=== PATIENT | female | born 1995 | race Caucasian/White ===

== ENCOUNTER 2022-06-22 19:30 | Inpatient (IN) | payer OTHER, SELFPAY ==
[~2022-06-22 19:30] MED LIST: Bupivacaine/Epinephrine 0.25% 30 ML VIAL ONE
[2022-06-23 01:37] LABS: Hemoglobin 10.8 g/dL (12.0-15.5); Mean Corpuscular HGB CONC 33.3 g/dL (32.0-36.0); Mean Corpuscular Hemoglobin 26.3 pg (27.0-33.0); Mean Corpuscular Volume 78.8 fl (81.6-98.3); Mean Platelet Volume 11.4 fl (7.4-10.4); Platelet Count 260 10x3/uL (150-450); RBC Distribution Width 13.7 % (11.5-14.5); Red Blood Cell (RBC) Count 4.11 10x6/uL (3.90-5.03); White Blood Cell (WBC) Count 12.5 10x3/uL (3.5-10.5)
[2022-06-23 02:10] LABS: HBSAg Index 0.16 S/CO (0-0.99); Hep B Surf Ag Non-Reactive S/CO (NonReactive)
[2022-06-23 02:11] LABS: Syphilis Antibody Nonreactive (Nonreactive); Syphilis Antibody Index 0.04 S/CO (<1.00 Non-Reactive)
[2022-06-23] MEDS ORDERED: Lidocaine 1% (PF) 30 ML VIAL SC PRN (02:15)
[2022-06-23] MEDS ORDERED: Lactated Ringer's 1,000 ML IV SCH (02:15)
[2022-06-23] MEDS ORDERED: NS w/ Oxytocin 30 units 500 ML IVPB SCH (02:15)
[2022-06-23] MEDS ORDERED: hydrALAZINE 20 MG/ML VIAL SLOW IVP PRN (02:15)
[2022-06-23] MEDS ORDERED: Acetaminophen 500 MG TAB PO PRN (02:15)
[2022-06-23] MEDS ORDERED: Promethazine HCl 25 MG/ML VIAL IM PRN ×2 (02:15→10:22)
[2022-06-23] MEDS ORDERED: Ibuprofen 800 MG TAB PO PRN (02:15)
[2022-06-23] MEDS ORDERED: HYDROcodone/Acetaminophen 5/325 mg Tablet PO PRN (02:15)
[2022-06-23] MEDS ORDERED: Ondansetron PF 4 MG/2 ML Vial IVP PRN ×2 (02:15→10:22)
[2022-06-23] MEDS ORDERED: NS w/ Oxytocin 30 units 500 ML IV SCH (02:15)
[2022-06-23] MEDS ORDERED: Butorphanol Tartrate 1 MG/ML VIAL SLOW IVP PRN (02:15)
[2022-06-23 02:28] VITALS: BMI 31.1
[2022-06-23 02:42] LABS: HIV (1/2) Antibody/Antigen Non-Reactive (NonReactive); HIV 1/2 INDEX 0.13 S/CO (<1.00)
[2022-06-23] MEDS ORDERED: Calcium Carbonate 500 MG ChewTAB PO PRN (03:00)
[2022-06-23 03:33] LABS: SARS-CoV-2 NAA Rapid Test Not Detected (NotDetected)
[2022-06-23] MEDS ORDERED: Fentanyl 2 mcg/Bup 0.1% Cadd 100 ML ONE ×2 (08:29→16:00)
[2022-06-23] MEDS ORDERED: diphenhydrAMINE 50 MG/ML VIAL IVP PRN (10:22)
[2022-06-23] MEDS ORDERED: Acetaminophen 325 MG TAB PO PRN (10:22)
[2022-06-23] MEDS ORDERED: ePHEDrine Sulfate 50 MG/10 ML VIAL SLOW IVP PRN (10:22)
[2022-06-23] MEDS ORDERED: Naloxone HCl 0.4 mg/ml Vial IVP PRN ×2 (10:22)
[2022-06-23] MEDS ORDERED: Moisturizing Cream (Eucerin) 113 GM JAR TOP PRN (10:22)
[2022-06-23] MEDS ORDERED: Communication Order-Pharmacy FS SCH (10:30)
[2022-06-23] MEDS ORDERED: Fentanyl 2 mcg/Bupivacaine 0.1% Cassette 100 ML EPIDURAL SCH (10:30)
[2022-06-23] MEDS ORDERED: Lactated Ringer's 500 ML IV PRN (10:38)
[2022-06-23] MEDS ORDERED: Misoprostol 200 MCG TAB ONE (19:03)
[2022-06-23] MEDS ORDERED: Calcium Carbonate 500 MG ChewTAB PO SCH (19:30)
[2022-06-24] MEDS ORDERED: Ampicillin/Sulbactam 3 GM in Sodium Chloride 0.9% 100 ML IVPB SCH (00:01)
[2022-06-24] MEDS ORDERED: Methylergonovine 0.2 MG/ML VIAL ONE (00:27)
[2022-06-24] MEDS ORDERED: Bisacodyl 10 MG SUPP PR PRN (02:44)
[2022-06-24] MEDS ORDERED: Benzocaine-Menthol 82.5 ML CAN TOP PRN (02:44)
[2022-06-24] MEDS ORDERED: HYDROcodone/Acetaminophen 5/325 mg Tablet PO PRN (02:44)
[2022-06-24] MEDS ORDERED: Boostrix 0.5 ML (Tdap) VIAL (>/=7 yrs of age) IM ONE (02:44)
[2022-06-24] MEDS ORDERED: hydrALAZINE 20 MG/ML VIAL SLOW IVP PRN (02:44)
[2022-06-24] MEDS ORDERED: Milk Of Magnesia 30 ML UDCUP PO PRN (02:44)
[2022-06-24 04:03] LABS: Mean Corpuscular HGB CONC 33.6 g/dL (32.0-36.0); Mean Corpuscular Hemoglobin 26.2 pg (27.0-33.0); Mean Corpuscular Volume 78.2 fl (81.6-98.3); Mean Platelet Volume 10.7 fl (7.4-10.4); Platelet Count 233 10x3/uL (150-450); RBC Distribution Width 13.7 % (11.5-14.5); Red Blood Cell (RBC) Count 3.81 10x6/uL (3.90-5.03); White Blood Cell (WBC) Count 21.2 10x3/uL (3.5-10.5)
[2022-06-24] MEDS: Ferrous Sulfate 325 MG TAB PO SCH ×2 (08:44→19:11)
[2022-06-24] MEDS: Ibuprofen 800 MG TAB PO SCH ×2 (08:47→16:44)
[2022-06-24] MEDS: Docusate 100 MG CAP PO SCH (08:48)
[2022-06-25] MEDS: Docusate 100 MG CAP PO SCH ×2 (00:49→08:42)
[2022-06-25] MEDS: Ibuprofen 800 MG TAB PO SCH ×3 (00:49→14:25)
[2022-06-25 08:18] VITALS: BP 110/61; TEMP 97.8
[2022-06-25] MEDS: Ferrous Sulfate 325 MG TAB PO SCH (09:04)
== END 2022-06-25 14:00 | disposition home or self-care (01) | DRG 806 ==
LOC: CSHLD 23:55 → CSHPP 06-24 02:30
PROVIDERS: ADMIT Family Medicine; ATTEND Family Medicine
PROC: 3E033VJ Introduction of Other Hormone into Peripheral Vein, Percutaneous Approach (ICD-10-PCS; 2022-06-23)
PROC: 10H07YZ Insertion of Other Device into Products of Conception, Via Natural or Artificial Opening (ICD-10-PCS; 2022-06-23)
PROC: 10E0XZZ Delivery of Products of Conception, External Approach (ICD-10-PCS; principal; 2022-06-24)
PROC: 0KQM0ZZ Repair Perineum Muscle, Open Approach (ICD-10-PCS; 2022-06-24)
PROC: 10D17Z9 Manual Extraction of Products of Conception, Retained, Via Natural or Artificial Opening (ICD-10-PCS; 2022-06-24)
DX: O48.0 Post-term pregnancy (principal); R71.0 Precipitous drop in hematocrit; Z37.0 Single live birth; Z20.822 Contact with and (suspected) exposure to COVID-19; Z3A.41 41 weeks gestation of pregnancy; O77.0 Labor and delivery complicated by meconium in amniotic fluid; O70.1 Second degree perineal laceration during delivery; O99.893 Other specified diseases and conditions complicating puerperium
CPT/HCPCS: 36415; 51702; 85027; 86780; 86850; 86900; 86901; 87340; 87389; J0295; J0595; J1200; J2590; J3490; U0002

== ENCOUNTER 2024-02-29 09:36 | Day surgery (SDC) | payer SELFPAY ==
[2024-02-29] MEDS ORDERED: hydrALAZINE 20 MG/ML VIAL SLOW IVP PRN (10:41)
[2024-02-29 11:20] VITALS: BMI 27.3
== END 2024-02-29 10:50 | disposition other institution (70) ==
LOC: CSHLD/OP 09:36
PROVIDERS: ATTEND Family Medicine
DX: O99.891 Other specified diseases and conditions complicating pregnancy (principal); M54.9 Dorsalgia, unspecified; Z98.890 Other specified postprocedural states; Z79.899 Other long term (current) drug therapy; Z3A.29 29 weeks gestation of pregnancy
CPT/HCPCS: 99282

== ENCOUNTER 2024-02-29 10:53 | Emergency (ER) | payer SELFPAY ==
[2024-02-29] MEDS ORDERED: Lidocaine 4% Patch ONE (11:55)
[2024-02-29] MEDS ORDERED: Cyclobenzaprine 10 MG TAB ONE (11:55)
[2024-02-29] MEDS ORDERED: Acetaminophen 325 MG TAB ONE (11:55)
== END 2024-02-29 15:48 | disposition home or self-care (01) ==
LOC: CSHERS 10:53
DX: O99.891 Other specified diseases and conditions complicating pregnancy (principal); M54.50 Low back pain, unspecified; Z3A.29 29 weeks gestation of pregnancy
CPT/HCPCS: 99283

== ENCOUNTER 2024-05-04 05:30 | Inpatient (IN) | payer OTHER, SELFPAY ==
[2024-05-04 06:35] VITALS: BMI 29.0
[2024-05-04] MEDS ORDERED: fentaNYL 50 mcg/mL 1 mL Vial SLOW IVP PRN (07:28)
[2024-05-04] MEDS ORDERED: Methylergonovine 0.2 MG/ML VIAL IM PRN (07:28)
[2024-05-04] MEDS ORDERED: Carboprost 250 MCG/ML AMP IM PRN (07:28)
[2024-05-04] MEDS ORDERED: Diphenoxylate HCl/Atropine Tablet PO PRN (07:28)
[2024-05-04] MEDS ORDERED: Promethazine HCl 25 MG/ML VIAL IM PRN ×2 (07:28→20:37)
[2024-05-04] MEDS ORDERED: hydrALAZINE 20 MG/ML VIAL SLOW IVP PRN (07:28)
[2024-05-04] MEDS ORDERED: Ondansetron PF 4 MG/2 ML Vial IVP PRN ×2 (07:28→20:37)
[2024-05-04] MEDS ORDERED: Lidocaine 1% (PF) 30 ML VIAL SC PRN (07:28)
[2024-05-04] MEDS ORDERED: HYDROcodone/Acetaminophen 5/325 mg Tablet PO PRN (07:28)
[2024-05-04 07:45] LABS: Hematocrit 33.4 % (34.9-44.5); Hemoglobin 11.1 g/dL (12.0-15.5); Mean Corpuscular HGB CONC 33.2 g/dL (32.0-36.0); Mean Corpuscular Volume 81.3 fL (81.6-98.3); Mean Platelet Volume 10.9 fL (7.4-10.4); Platelet Count 250 10x3/uL (150-450); Red Blood Cell (RBC) Count 4.11 10x6/uL (3.90-5.03); White Blood Cell (WBC) Count 11.5 10x3/uL (3.5-10.5)
[2024-05-04] MEDS ORDERED: Bupivacaine/Epinephrine 0.25% 30 ML VIAL ONE (08:00)
[2024-05-04] MEDS: Glycerin Adult Supp. (24 ct jar) PR SCH (08:02)
[2024-05-04 08:10] LABS: Syphilis Antibody Nonreactive (Nonreactive); Syphilis Antibody Index 0.06 S/CO (<1.00 Non-Reactive)
[2024-05-04 08:11] LABS: HBsAg Index 0.19 S/CO (0-0.99); Hep B Surf Ag - L&D Non-Reactive S/CO (NonReactive)
[2024-05-04] MEDS: Oxytocin 30 units/NS 500 ML 500 ML IV SCH (08:30)
[2024-05-04] MEDS: Lactated Ringer's 1,000 ML IV SCH (08:41)
[2024-05-04] MEDS ORDERED: ePHEDrine Sulfate 50 MG/10 ML VIAL SLOW IVP PRN (20:37)
[2024-05-04] MEDS ORDERED: diphenhydrAMINE 50 MG/ML VIAL IVP PRN (20:37)
[2024-05-04] MEDS ORDERED: Naloxone HCl 0.4 mg/ml Vial IVP PRN ×2 (20:37)
[2024-05-04] MEDS ORDERED: Acetaminophen 325 MG TAB PO PRN (20:37)
[2024-05-04] MEDS ORDERED: Lactated Ringer's 500 ML IV PRN (20:37)
[2024-05-04] MEDS ORDERED: Moisturizing Cream (Eucerin) 113 GM JAR TOP PRN (20:37)
[2024-05-04] MEDS ORDERED: Communication Order-Pharmacy FS SCH (20:45)
[2024-05-04] MEDS ORDERED: fentaNYL 2 mcg/Ropivacaine 0.2% Epidural 100 ML CADD EPIDURAL SCH (20:45)
[2024-05-05] MEDS: Misoprostol 200 MCG TAB PR PRN (02:27)
[2024-05-05] MEDS: Ibuprofen 800 MG TAB PO PRN (04:09)
[2024-05-05] MEDS: Oxytocin 30 units/NS 500 ML 500 ML IV SCH (05:04)
[2024-05-05] MEDS: Tranexamic Acid 1,000 MG/10 ML VIAL IVP PRN (05:58)
[2024-05-05] MEDS ORDERED: Benzocaine-Menthol 82.5 ML CAN TOP PRN (07:14)
[2024-05-05] MEDS ORDERED: Boostrix 0.5 ML (Tdap) VIAL (>/=7 yrs of age) IM ONE (07:14)
[2024-05-05] MEDS ORDERED: Ibuprofen 800 MG TAB PO SCH (07:14)
[2024-05-05] MEDS ORDERED: Milk Of Magnesia 30 ML UDCUP PO PRN (07:14)
[2024-05-05] MEDS ORDERED: Bisacodyl 10 MG SUPP PR PRN (07:14)
[2024-05-05] MEDS ORDERED: hydrALAZINE 20 MG/ML VIAL SLOW IVP PRN (07:14)
[2024-05-05] MEDS: Docusate 100 MG CAP PO SCH (08:12)
[2024-05-05] MEDS: HYDROcodone/Acetaminophen 5/325 mg Tablet PO PRN (08:12)
[2024-05-05] MEDS: Ferrous Sulfate 325 MG TAB PO SCH (08:12)
[2024-05-05] MEDS: Ibuprofen 800 MG TAB PO SCH (12:02)
[2024-05-06] MEDS: fentaNYL/Ropivacaine Epidural 100 ML ONE (07:16)
[2024-05-06 07:50] VITALS: BP 108/74; TEMP 98.3
== END 2024-05-06 12:40 | disposition home or self-care (01) | DRG 807 ==
LOC: CSHLD 06:11 → CSHPP 05-05 17:53
PROVIDERS: ADMIT Family Medicine; ATTEND Family Medicine
PROC: 10E0XZZ Delivery of Products of Conception, External Approach (ICD-10-PCS; principal; 2024-05-05)
DX: O80 Encounter for full-term uncomplicated delivery (principal); Z37.0 Single live birth; Z3A.39 39 weeks gestation of pregnancy; Z79.899 Other long term (current) drug therapy
CPT/HCPCS: 51702; 59200; 85027; 86780; 86850; 86900; 86901; 87340; J2590; J7120